=== PATIENT | male | born 1990 | race Caucasian/White ===

== ENCOUNTER 2017-01-16 03:57 | Emergency (ER) | payer BC, OTHER ==
[~2017-01-16] VITALS: Ht 188 cm; Wt 114.4 kg
[~2017-01-16 03:57] MED LIST: MEDLIST
[2017-01-16 04:01] VITALS: TEMP 36.6; Ht 188 cm; Wt 114.4 kg
--- NOTE | 2017-01-16 04:13 | EMERGENCY ROOM VISIT NOTE ---
History Report prepared by Spencer: Avni Ferrari Under the Supervision of: Dr. Christian Trevino D.O. First contact with patient: 04:04 Chief Complaint: TOE PAIN, INJURY Stated Complaint: GOUT History of Present Illness The patient is a 26 year old male who presents to the Emergency Room with complaints of persistent pain of the left great toe since yesterday morning. The patient describes burning pain with swelling when compared to the right foot. The pain is rated 9/10 in severity. The patient has a history of gout which his toe pain is consistent with. His last flare up was two years ago which was treated with steroids. He also has a family history of gout. Source of History: patient Onset: yesterday morning Position: toe(s) (left great) Symptom Intensity: 9/10 Quality: burning Timing: other (persistent) Review of Systems See HPI for pertinent positives and negatives. A total of six systems were reviewed and were otherwise negative. Past Medical & Surgical Medical Problems: (1) H/O: gout Family History Gout Social History Smoking Status: Current Every Day Smoker Occupation Status: employed Current/Historical Medications No Active Prescriptions or Reported Meds Allergies Coded Allergies: No Known Allergies (Unverified , 01/16/17) Physical Exam Vital Signs Date Time Temp Pulse Resp B/P Pulse Ox O2 Delivery O2 Flow Rate FiO2 01/16/17 04:01 36.6 80 20 147/94 98 Room Air Physical Exam GENERAL: Awake, alert, well-appearing, in no distress HENT: Normocephalic, atraumatic. Oropharynx unremarkable. EYES: Normal conjunctiva. Sclera non-icteric. NECK: Supple. No nuchal rigidity. FROM. No JVD. RESPIRATORY: Clear to auscultation. CARDIAC: Regular rate, normal rhythm. Extremities warm and well perfused. Pulses equal. ABDOMEN: Soft, non-distended. No tenderness to palpation. No rebound or guarding. No masses. RECTAL: Deferred. MUSCULOSKELETAL: Chest examination reveals no tenderness. The back is symmetrical on inspection without obvious abnormality. There is no CVA tenderness to palpation. No joint edema. LOWER EXTREMITIES: Left foot neurovascularly intact distally. There is swelling of the left first MTP joint, no signs of cellulitis, no lymphangitis. NEURO: Normal sensorium. No sensory or motor deficits noted. SKIN: No rash or jaundice noted. Medical Decision & Procedures ED Course 0404: The patient was evaluated in room A3. A complete history and physical exam was performed. 0410: Prednisone 60 mg PO. 0415: Discussed the discharge instructions. He verbalized understanding. The patient is ready for discharge. Medical Decision Differential diagnosis includes gout, bursitis, arthritis. We will treat for gout there is no signs of a septic joint Scribe Attestation The scribe's documentation has been prepared under my direction and personally reviewed by me in its entirety. I confirm that the note above accurately reflects all work, treatment, procedures, and medical decision making performed by me. Departure Information Dispostion Home / Self-Care Prescriptions Prednisone (Prednisone) 50 Mg Tab 50 MG PO DAILY for 10 Days, #10 TAB Prov: Christian Trevino, DO 01/16/17 Referrals No Doctor, Assigned (PCP) Forms HOME CARE DOCUMENTATION FORM, IMPORTANT VISIT INFORMATION, WORK / SCHOOL INSTRUCTIONS Patient Instructions Gout, My [facility]
[2017-01-16] MEDS ORDERED: PRED50TA PO (04:17)
[2017-01-16 04:25] VITALS: BP 148/101; PULSE 70; O2SAT 99
== END 2017-01-16 04:25 | disposition home or self-care (01) ==
LOC: C.EDB 03:59 → C.EDA 04:25
DX: M10.9 Gout, unspecified (principal); F17.210 Nicotine dependence, cigarettes, uncomplicated

== ENCOUNTER 2017-03-11 20:57 | Emergency (ER) | payer BC, OTHER ==
[~2017-03-11] VITALS: Ht 188 cm; Wt 113.0 kg
[2017-03-11 20:58] VITALS: BP 140/92; PULSE 77; TEMP 36.6; O2SAT 98; Ht 188 cm; Wt 113.0 kg
[2017-03-11] MEDS ORDERED: CIPROFLOXACIN 250 MG TAB PO STA (21:15)
[2017-03-11] MEDS ORDERED: CEPHALEXIN MONOHYDRATE 250 MG CAP PO STA (21:15)
[2017-03-11] MEDS ORDERED: CIPROFLOXACIN 500MG HOME PACK PO STA (21:15)
[2017-03-11] MEDS ORDERED: CEPHALEXIN 500MG HOME PACK 1 EA BTL PO STA (21:15)
[2017-03-11] MEDS ORDERED: DIPHTHERIA/TETANUS/PERTUSSIS 0.5 ML SYR/VIAL IM. ONE (21:15)
[2017-03-11] MEDS ORDERED: CEPH500C PO (21:45)
[2017-03-11] MEDS ORDERED: CIPR-255 PO (21:45)
--- NOTE | 2017-03-11 21:47 | EMERGENCY ROOM VISIT NOTE ---
History First contact with patient: 21:08 Chief Complaint: PUNCTURE WOUND Stated Complaint: STEPPED ON NAIL W/RT FOOT Nursing Triage Summary: pt stepped on a nail with right foot History of Present Illness The patient is a 26 year old male who presents to the Emergency Room via private vehicle with complaints of "stepped on nail with right foot". The patient states that today around 3 PM, he was at a friend's house, when he accidentally stepped upon a long nail that punctured through his shoe and into his foot. He was wearing tennis shoes at this time. The nail was believed to be meliza. There was minimal bleeding at the time from the right foot. He then walked on the foot for the next 2-3 hours, and now has developed a dull pain that he rates as a 3/10. His tetanus is believed to not be up-to-date. He denies any allergies. Review of Systems A complete 6-point Review of Systems was discussed with the patient, with pertinent positives and negatives listed in the History of Present Illness. All remaining Review of Systems questions can be considered negative unless otherwise specified. Past Medical/Surgical History Medical Problems: (1) H/O: gout Family History Gout Social History Smoking Status: Never Smoker Occupation Status: employed Current/Historical Medications Scheduled Cephalexin Monohydrate (Keflex), 500 MG PO BID Ciprofloxacin Hcl (Cipro), 500 MG PO BID Allergies Coded Allergies: No Known Allergies (Unverified , 01/16/17) Physical Exam Vital Signs Date Time Temp Pulse Resp B/P (MAP) Pulse Ox O2 Delivery O2 Flow Rate FiO2 03/11/17 20:58 36.6 77 18 140/92 98 Room Air Physical Exam VITAL SIGNS - Vital signs and nursing notes were reviewed. Patient is afebrile , hypertensive at 140/92, not tachycardic and saturating well on room air at 98% . GENERAL -26-year-old male appearing his stated age who is in no acute distress. Communicates well with provider and answers questions appropriately. SKIN - Without rashes. No petechial rashes. There is a small punctate region that is consistent with a puncture wound on the right plantar surface of the foot just posterior to the ball of the foot. EXTREMITIES - No clubbing or peripheral cyanosis. No pretibial edema present. Minimal tenderness to the puncture wound. No active bleeding. He is neurovascularly intact in this region. No evidence of infection or drainage at this time. +5/5 strength noted in UE/LE bilaterally. Medical Decision & Procedures ER Provider Diagnostic Interpretation: RIGHT FOOT 3 VIEWS CLINICAL HISTORY: Puncture wound. The patient stepped on a nail. FINDINGS: 3 views of the right foot are obtained. No prior studies are available for comparison at the time of dictation. The skeletal structures are well mineralized. No fracture is seen. The joint spaces of the foot are well-maintained. The overlying soft tissues are within normal limits. No radiodense/metallic foreign body is identified. IMPRESSION: 1. No acute bony abnormality is seen. 2. No radiodense/metallic foreign body is identified. Electronically signed by: Alexsander Lao M.D. 03/11/2017 9:45 PM Dictated Date/Time: 03/11/2017 9:44 PM Medications Administered Medications (Trade) Dose Ordered Sig/Jay Route Start Time Stop Time Status Last Admin Dose Admin Diphtheria/ Pertussis/Tetanus Vacc (Adacel Inj) 0.5 ml ONCE ONCE IM. 03/11/17 21:15 03/11/17 21:22 DC 03/11/17 21:38 0.5 ML Cephalexin Monohydrate (Keflex 500MG Home Pack) 1 homepack NOW STAT PO 03/11/17 21:15 03/11/17 21:23 DC 03/11/17 21:48 1 HOMEPACK Ciprofloxacin (Cipro 500MG Home Pack) 1 homepack UD STAT PO 03/11/17 21:15 03/11/17 21:23 DC 03/11/17 21:48 1 HOMEPACK Medical Decision Patient was seen and evaluated as above. After obtaining a thorough history and physical examination radiograph was obtained of the right foot, and the wound was cleansed. It was dressed with a bacitracin dressing. Radiograph results as above. No acute fracture, dislocation or retained foreign body. There is no active hemorrhaging at this time noted to inspection. He'll be prophylactically treated with antibiotics to help prevent infection. He'll be given Cipro and Keflex. He was given the Adacel vaccination for tetanus. He was educated upon worrisome symptoms which to return, was educated upon management today's findings, had questions prior to discharge, and was discharged home in good condition. In evaluation treatment this patient following differential diagnoses were entertained: Fracture, dislocation, retained foreign body, need for tetanus shot , among others. Impression Primary Impression: nail trough shoe into foot, puncture wound Additional Impression: Need for bdlxvpbumo-dccdxnn-gdhtduumi (Tdap) vaccine, adult/adolescent Departure Information Dispostion Home / Self-Care Condition GOOD Prescriptions Ciprofloxacin Hcl (CIPRO) 500 Mg Tab 500 MG PO BID for 6 Days, #12 TAB Prov: Jason Phipps PA-C 03/11/17 Cephalexin Monohydrate (Keflex) 500 Mg Cap 500 MG PO BID for 6 Days, #12 CAP Prov: Jason Phipps PA-C 03/11/17 Referrals No Doctor, Assigned (PCP) Patient Instructions My [facility] Additional Instructions Proper wound care is essential for adequate wound healing and infection prevention. You can shower and clean the wound with soap and water. Do not scour over the wound, pat dry with a towel. Do not submerse the wound (i.e. bathe or dish wash) until the skin has healed over in a few days. You can use an antibiotic ointment with a dressing over the wound for the next 3-4 days. After this time you may leave the wound dry and open to the air. If crust develops over the wound you can use a Q-tip to apply a 1:1 peroxide:water solution to clean the wound. You've been prescribed Keflex 500 mg twice daily which is every 12 hours for 7 days. You were given the first dose here for 24 hours with the remainder sent to your pharmacy. You've him prescribe ciprofloxacin, 500 mg twice daily for 7 days. You given the first dose here for 24 hours with remainder sent to your pharmacy. Look for signs of infection of the wound including: increased pain, swelling, foul discharge, streaking, or increased temperature. If any of these are noticed you should return to the Emergency Department for further assessment and treatment. As with any puncture wound you may have received nerve damage to the surrounding tissues. This damage may or may not be permanent. For pain control, you can use the following dkdy-lep-acucssf medicines (if >12 yo): - Regular strength (325mg/tab) Tylenol (acetaminophen) 2 tabs every 4-6 hours as needed. Do not exceed 12 tablets in a 24 hour period. Avoid taking more than 3 grams (3000 mg) of Tylenol per day. This includes any other sources of acetaminophen you may take on a regular basis. - Regular strength (200 mg/tab) Advil (ibuprofen) 1-2 tabs every 4-6 hours as needed. Do not exceed a dose of 3200 mg per day. Return to the emergency department if your symptoms worsen despite treatment course outlined above. Problem Qualifiers
== END 2017-03-11 21:55 | disposition home or self-care (01) ==
LOC: C.EDB 20:58 → C.EDD 21:55
DX: S91.331A Puncture wound without foreign body, right foot, initial encounter (principal); W45.0XXA Nail entering through skin, initial encounter; Z23 Encounter for immunization; M10.9 Gout, unspecified